=== PATIENT | male | born 1955 | race Caucasian/White ===

== ENCOUNTER 2020-07-09 10:12 | Emergency (ER) | payer MEDICARE, SELFPAY ==
[2020-07-09 10:12] VITALS: PULSE 0; RESP 12; O2SAT 22; BMI 17.9
--- NOTE | 2020-07-09 10:30 | ED.CPR ---
HPI - CPR General Chief Complaint: Cardiac Arrest/CPR Stated Complaint: CARDIAC ARREST Time Seen by Provider: 07/09/20 10:29 Source: EMS Mode of arrival: EMS Limitations: other (Unresponsive due to cardiac arrest.) History of Present Illness HPI narrative: 64-year-old male history of hypertension, hyperlipidemia, patient was found at home unresponsive, 1st responders found him in asystole with no pulses CPR was started at the scene, patient was intubated by EMS, patient was given 4 rounds of IV epinephrine, blood sugar was checked to be in the 200s, patient was transported to the hospital. Patient appear cachectic, intubated, CPR in progress, pulseless, asystole. Patient was given 1 mg of epinephrine with no change. Cardiac ultrasound showed no cardiac activity. This was pronounced at 10:22 a.m. Related Data Home Medications Medication Instructions Recorded Confirmed aspirin 81 mg tablet,delayed 81 mg PO DAILY 04/12/20 release clonidine HCl 0.2 mg tablet 0.2 mg PO TID 04/12/20 hydralazine 25 mg tablet 25 mg PO TID 04/12/20 lisinopril 20 mg tablet 20 mg PO DAILY 04/12/20 multivitamin 1 tab PO DAILY 04/12/20 Allergies Allergy/AdvReac Type Severity Reaction Status Date / Time No Known Allergies Allergy Verified 04/11/20 12:25 [No Known Allergies*] Review of Systems Review of Systems: Yes Unobtainable due to mental condition PMFSH Past Medical History Medical History Chronic back pain Dyslipidemia HTN (hypertension) Seizure disorder Surgical History History of back surgery Family History Family History Father No problems noted. Mother Unknown family medical history Social History Social History Advance Directives: No Advance Directives Information Provided: No Physical Exam Vital Signs: Vital Signs: Last Vital Signs Pulse 0 L 07/09/20 10:12 Resp 12 07/09/20 10:12 Pulse Ox 22 L 07/09/20 10:12 Body Mass Index 17.9 Asystole, intubated. General: Unresponsive, asystole, intubated. Eyes: 4 mm fixed and dilated. Neck: No sign of trauma flat jugular veins. Head: Atraumatic. Chest: Intubated with equal rise of bilateral chest wall. No sign of trauma Heart: No heart sounds. Abdomen: Nontraumatic. Extremities: No sign of trauma. Neuro: GCS of 3. Course Course Course Narrative: 64-year-old history of hypertension came in with cardiopulmonary arrest with unsuccessful CPR resuscitation. Further history was obtained from the father who talked to the son yesterday patient was not feeling well with no specific symptoms. When the father went to check on him this morning he found him unresponsive on the floor, 911 was called. Patient was pronounced as natural DIS at 10:22 on 07/09/2020. Patient was declined by diagnostic medical sonographer case [id number] by Alan. Discharge Plan Discharge Clinical Impression: Cardiac arrest Patient Disposition: Prescriptions: No Action lisinopril 20 mg tablet 20 mg PO DAILY RF: 0 aspirin 81 mg tablet,delayed release (DR/EC) 81 mg PO DAILY RF: 0 clonidine HCl 0.2 mg tablet 0.2 mg PO TID RF: 0 hydralazine 25 mg tablet 25 mg PO TID RF: 0 multivitamin Tablet 1 tab PO DAILY RF: 0
--- NOTE | 2020-07-09 10:34 | PC.NURSE ---
spoke with [facility] declined spoke with diamond [id number]
--- NOTE | 2020-07-09 10:56 | PC.NURSE ---
spoke with patients father, he will try to get here
--- NOTE | 2020-07-09 11:12 | PC.NURSE ---
11:01AM DR MARTINEZ REQUESTS CALL OUT TO [facility] ERIC ANSWERS, TAKES PT DEMOGRAPHIC INFO AND ASKS TO SPEAK WITH DR MICHELLE MARTINEZ ANSWERS CALL BUT SAYS HE WAS ON HOLD AND NEEDS TO CALL BACK
--- NOTE | 2020-07-09 11:15 | PC.NURSE ---
@ 11:13CHRIS REYES FROM [facility] CALLS BACK TO SPEAK WITH DR MICHELLE MARTINEZ TAKES OVER CALL RIGHT AWAY
--- NOTE | 2020-07-09 11:18 | PC.NURSE ---
@11:18AM DR MARTINEZ GIVES MEDICAL EXAM A DECLINED CASE BY Ellen
--- NOTE | 2020-07-09 11:20 | PC.NURSE ---
@11:20AM CALL PLACED TO [facility] [place] TO MAKE THEM AWARE OF THIS PT SAMUEL ANSWERS,TAKES PT INFO AND SAYS SHE WILL BILL HIS CHART PER DR MARTINEZ TIME OF 10:22AM
--- NOTE | 2020-07-09 11:47 | PC.NURSE ---
pt father here de elmogy aware
--- NOTE | 2020-07-09 12:41 | PC.NURSE ---
PT TRANSPORTED TO [facility] [place].
== END 2020-07-09 12:41 | disposition expired ==
PROVIDERS: Emergency Provider Emergency Medicine; PCP Nurse Practitioner Family
DX: I46.9 Cardiac arrest, cause unspecified (principal); I10 Essential (primary) hypertension; E78.5 Hyperlipidemia, unspecified
CPT/HCPCS: 99282; 99284; J0171